=== PATIENT | female | born 1960 | race Caucasian/White ===

== ENCOUNTER 2022-04-16 10:33 | Emergency (ER) | payer OTHER ==
[2022-04-16] MEDS: Ondansetron 4 MG/2 ML SDV IVPUSH ONE (12:18)
[2022-04-16] MEDS: Sodium Chloride 0.9% 1,000 ML IV SCH (12:21)
[2022-04-16] MEDS ORDERED: Iopamidol 612 MG/ML 100 ML Bottle IV PRN (12:46)
[2022-04-16] MEDS ORDERED: Sodium Chloride 0.9% 100 ML IV SCH (13:00)
[2022-04-16] MEDS: metroNIDAZOLE/Normal Saline 500 MG in Premix Bag 1 BAG IV ONE (14:49)
[2022-04-16] MEDS: Levofloxacin/Dextrose 5%-Water 750 MG in Premix Bag 1 BAG IV ONE (14:55)
== END 2022-04-16 16:40 ==
LOC: JP.ED 10:33
DX: K52.9 Noninfective gastroenteritis and colitis, unspecified (principal); K57.32 Diverticulitis of large intestine without perforation or abscess without bleeding
CPT/HCPCS: 36415; 74177; 80053; 81001; 85025; 86140; 96361; 96365; 96368; 96375; 99284; 99285; J1956; J2405; J3490; J7030